=== PATIENT | female | born 1995 | race Caucasian/White ===

== ENCOUNTER 2017-08-27 00:26 | Emergency (ER) | payer BC ==
[~2017-08-27] VITALS: Ht 175.3 cm; Wt 83.8 kg
[2017-08-27 01:22] LABS: HEMATOCRIT 41.6 % (36.0-46.0); HEMOGLOBIN 14.3 G/DL (11.9-15.5); MCH 28.7 PG (29.0-34.0); MCHC 34.4 G/DL (30.0-36.0); MCV 83.5 FL (83-99); PLATELET COUNT 430 K/uL (156-360); RBC DIS.WIDTH-CV 13.2 % (11.8-14.6); RBC DIS.WIDTH-SD 39.8 % (39-53); RED BLOOD COUNT 4.98 M/uL (3.80-5.20); WHITE BLOOD COUNT 10.1 K/uL (4.1-10.2)
[2017-08-27 01:22] LABS: APPEARANCE SL.HAZY ((CLEAR)); BILIRUBIN NEGATIVE; BLOOD NEGATIVE; COLOR YELLOW ((YELLOW)); GLUCOSE (STRIP) NEGATIVE; KETONES 20; LEUKOCYTES NEGATIVE; NITRITE NEGATIVE; PROTEIN (STRIP) NEGATIVE; SPECIFIC GRAVITY 1.025 (1.000-1.030); UROBILINOGEN 0.2 MG/DL (0.2-1.0)
[2017-08-27 01:31] LABS: ALBUMIN 5.2 g/dL (3.2-4.8); CHLORIDE 101 mEq/L (99-109); POTASSIUM 4.5 mEq/L (3.7-5.4); SODIUM 141 mEq/L (136-147)
[2017-08-27 01:33] LABS: GLUCOSE 96 mg/dL (70-99)
[2017-08-27 01:33] LABS: BACTERIA RARE /HPF; EPITHELIAL CELLS 1+ /HPF; MUCUS TRACE /LPF; UCUL ADDED? NO; WHITE BLOOD CELLS 0-5 /HPF (0-5)
[2017-08-27 01:35] LABS: TOTAL BILIRUBIN 0.5 mg/dL (0.0-1.0)
[2017-08-27 01:37] LABS: ALKALINE PHOSPHATASE 104 IU/L (3-129); CREATININE 0.8 mg/dL (0.6-1.3); GFR ESTIMATE (CALCULATED) > 59 mL/min/
[2017-08-27 01:38] LABS: AST (GOT) 23 IU/L (2-34); DIRECT BILIRUBIN 0.3 mg/dL (0.0-0.3); UREA NITROGEN (BUN) 11 mg/dL (9-23)
[2017-08-27 01:40] LABS: ALT (GPT) 38 IU/L (3-49); LIPASE 20 U/L (1.0-51.0)
[2017-08-27 01:52] LABS: QUANTITATIVE HCG < 4.0 MIU/ML
[2017-08-27] MEDS ORDERED: ZOFRAN4 MG PO (05:00)
[2017-08-27] MEDS ORDERED: ULTRAM50 MG PO (05:00)
[2017-08-27 05:11] VITALS: BP 105/56
== END 2017-08-27 05:11 | disposition home or self-care (01) ==
LOC: EME 00:26
DX: K86.2 Cyst of pancreas (principal); N85.8 Other specified noninflammatory disorders of uterus; Z88.8 Allergy status to other drugs, medicaments and biological substances; Z87.19 Personal history of other diseases of the digestive system
CPT/HCPCS: 74176; 76856; 80048; 80076; 81003; 83690; 84702; 85027; 99281; 99285; J2405; J3010; J7030